=== PATIENT | female | born 2000 | race Caucasian/White ===

== ENCOUNTER 2025-05-09 14:23 | Inpatient (IN) | payer MEDICAID ==
[~2025-05-09] VITALS: Ht 165.1 cm; Wt 81.0 kg
--- NOTE | 2025-05-09 14:32 | Physician Documentation ---
History of Present Illness Stated Complaint: ABD PAIN Time Seen by MD: 14:31 HPI This is a 24-year-old female who was received as a transfer from [facility] due to acute cholecystitis. The patient reports that she developed epigastric pain this morning severe enough that she presented to the emergency department. An ultrasound done at [facility] and showed multiple stones in the gallbladder with severe wall thickening and positive Redmond sign as well as mild edema. Likely acute cholecystitis correlate with CT per radiologist. Her labs were remarkable for a white blood cell count of 12.3 but normal hemoglobin and hematocrit. Electrolytes showed mildly reduced potassium at 3.3 normal kidney function with EGFR 133, normal LFTs and lipase normal at 81. The patient received cefepime 1 g, Toradol 30 mg IV ondansetron 4 mg IV and a 1 L bolus of normal saline at [facility]. She has no medical history except for obesity and has had successful weight loss with Zepbound, which is her only medication. NEG test at [facility]. CT was not done. Review of Systems ROS As stated above in the HPI, otherwise all systems are reviewed and negative. Physical Exam Physical Exam General: Alert, no apparent distress. HEENT: PERRL, EOMI, no injection, moist mucous membranes. Neck: Full range of motion. Respiratory: Lungs clear, no respiratory distress. Chest: No accessory muscle use. Cardiovascular: Regular rate and rhythm, no murmurs. Gastrointestinal: Soft, TTP RUQ, nondistended. Bowels sounds present. Extremities: Normal range of motion, no deformity. Neurologic: Oriented x4. Psychiatric: Normal mood and affect. Skin: Normal color, warm and dry. No edema, no ecchymosis. Progress Progress Note 1515: Attempted to call Dr. Petersen, no answer. U.S. will attempt to get ahold of him. 1430: Spoke with Dr. Petersen via phone through OR nurse as he is scrubbed into a case. Requests CT scan, agrees to consult. Hospitalist paged. EKG/XRAY/CT/US/VASC/MRI CT : [address] [place] [address] CAT SCAN Patient: GEOVANNA HARRIS Medical Record: [id number] [facility] : 2000, Age: 24 Sex: Female Location: ER Patient Status: [facility] ER Service Date/Time: 05/09/251630 Ordering Physician: CHARLY ALVAREZ NP Exam: CT ABDOMEN PELVIS EXAM: CT CT ABDOMEN PELVIS W/ IV CONTRAST HISTORY: Acute cholecystitis on U.S. TECHNIQUE: Volumetric multidetector CT images of the abdomen and pelvis were obtained after the administration of intravenous contrast. All CT scans at this facility use dose modulation, iterative reconstruction, and/or weight based dosing when appropriate to reduce radiation dose to as low as reasonably achievable. COMPARISON: None FINDINGS: [LOWER CHEST]: 2-3 mm oval-shaped pulmonary nodule of the lower lobe, likely benign. [LIVER]: Small amount of fatty infiltration along the falciform ligament. [GALLBLADDER AND BILIARY TREE]: Large gallstone of the gallbladder. Intramural edema. No biliary dilation. [SPLEEN]: Unremarkable. [PANCREAS]: Unremarkable. [ADRENAL GLANDS]: Unremarkable [KIDNEYS]: No hydronephrosis. No nephroureterolithiasis. [BLADDER]: Unremarkable for the degree distention. [REPRODUCTIVE ORGANS]: Unremarkable. [BOWEL/MESENTERY]: Stomach is normal. No CT evidence of bowel obstruction. normal appendix. [ASCITES]: Absent [LYMPHADENOPATHY]: No pathologically enlarged lymph nodes by CT size criteria [VASCULATURE]: No aneurysmal dilatation. [ABDOMINAL WALL]: Unremarkable. [MUSCULOSKELETAL]: No acute fracture or aggressive focal osseous lesion. IMPRESSION: 1. Large gallstone of the gallbladder with intramural edema. 2. Correlate with clinical exam for acute cholecystitis. Electronically Signed by:TREVIN LANDRY MD Date & Time: 05/09/251715 Dictated by: TREVIN LANDRY MD Dictation date and time: 05/09/251715 Primary Care Provider: NO PRIMARY CARE PROVIDER cc: CHARLY ALVAREZ DAIRY NUTRITION CONSULTANT ~ Medical Decision Making Additional information obtaine: family Findings Extensively reviewed records from [facility]. Differential Dx:Considerations: Other Additional Comments Most Likely Diagnoses: Acute calculous cholecystitis: The combination of multiple gallstones, severe gallbladder wall thickening, mild edema, and a positive Redmond sign is highly suggestive of acute calculous cholecystitis. Mildly elevated WBC further supports an inflammatory process. This is the most common cause of acute cholecystitis in young adults and is typically due to cystic duct obstruction by gallstones.[1-2] Gallstone biliary colic: If pain is episodic and not persistent, biliary colic remains possible. However, the presence of wall thickening and edema favors cholecystitis over simple colic.[2-3] Chronic cholecystitis: Chronic inflammation from repeated gallstone attacks can cause gallbladder wall thickening, but acute symptoms and positive Redmond sign make this less likely in the current setting.[2] Acalculous cholecystitis: Less likely given the presence of multiple gallstones, but should be considered if clinical course is atypical or if the patient is critically ill.[1] Gallbladder empyema: Severe wall thickening and systemic symptoms could indicate progression to empyema, especially if infection is severe, but this usually presents with more pronounced systemic toxicity.[4] Most Important Not to Miss Diagnoses: Ascending cholangitis: Look for Charcots triad (fever, jaundice, RUQ pain) and evidence of biliary obstruction (elevated bilirubin, dilated ducts on imaging). Absence of jaundice and lack of biliary ductal dilation on ultrasound make this less likely, but it must be ruled out due to its high morbidity.[5] Gallbladder perforation with peritonitis: Suspect if there is sudden worsening of pain, peritoneal signs, or evidence of free fluid/air on imaging. CT is more sensitive than ultrasound for detecting perforation.[4] Gallstone pancreatitis: Check for epigastric pain radiating to the back and elevated serum amylase/lipase. Gallstones are a common cause in young women.[6] Departure Time of Disposition: 17:51 Disposition: ADMITTED INPATIENT Admitted to Inpatient Unit: yes, to hospitalist Impression: Primary Impression: Acute cholecystitis Referrals: NO PRIMARY CARE PROVIDER (PCP) Signature Scribe Signature: x Attestation: The note accurately reflects work and decisions made by me.Charly Win NP 05/09/25 15:09 CHARLY ALVAREZ NP May 09, 2025 14:32
[2025-05-09] MEDS: morphine 4 MG/ML inj SYRINge IV ONE (16:05)
[2025-05-09 16:25] LABS: MEAN PLATELET VOLUME 9.2 FL (7.4-10.4); RED CELL DISTRIBUTION WIDTH 13.1 % (11.5-14.5)
[2025-05-09] MEDS: ondansetron/PF 4mg/2ml inj IV ONE (16:27)
[2025-05-09] MEDS: diazepam inj 5 MG/ML inj. IV ONE (16:27)
[2025-05-09] MEDS: normal saline 1000ml 1,000 ML IV ONE (16:27)
[2025-05-09 16:39] LABS: CREATININE 0.48 MG/DL (0.40-0.90); TOTAL CARBON DIOXIDE 23.4 MMOL/L (24-32); eCRCL 165 ML/MIN; eGFR > 90 ML/MIN
[2025-05-09] MEDS ORDERED: iohexol 300mg/ml 100ml inj. ONE (16:46)
--- NOTE | 2025-05-09 17:19 | RADIOLOGY REPORT ---
EXAM: CT CT ABDOMEN PELVIS W/ IV CONTRAST HISTORY: Acute cholecystitis on U.S. TECHNIQUE: Volumetric multidetector CT images of the abdomen and pelvis were obtained after the administration of intravenous contrast. All CT scans at this facility use dose modulation, iterative reconstruction, and/or weight based dosing when appropriate to reduce radiation dose to as low as reasonably achievable. COMPARISON: None FINDINGS: [LOWER CHEST]: 2-3 mm oval-shaped pulmonary nodule of the lower lobe, likely benign. [LIVER]: Small amount of fatty infiltration along the falciform ligament. [GALLBLADDER AND BILIARY TREE]: Large gallstone of the gallbladder. Intramural edema. No biliary dilation. [SPLEEN]: Unremarkable. [PANCREAS]: Unremarkable. [ADRENAL GLANDS]: Unremarkable [KIDNEYS]: No hydronephrosis. No nephroureterolithiasis. [BLADDER]: Unremarkable for the degree distention. [REPRODUCTIVE ORGANS]: Unremarkable. [BOWEL/MESENTERY]: Stomach is normal. No CT evidence of bowel obstruction. normal appendix. [ASCITES]: Absent [LYMPHADENOPATHY]: No pathologically enlarged lymph nodes by CT size criteria [VASCULATURE]: No aneurysmal dilatation. [ABDOMINAL WALL]: Unremarkable. [MUSCULOSKELETAL]: No acute fracture or aggressive focal osseous lesion. IMPRESSION: 1. Large gallstone of the gallbladder with intramural edema. 2. Correlate with clinical exam for acute cholecystitis.
--- NOTE | 2025-05-09 17:59 | HISTORY AND PHYSICAL ---
History & Physical Providers to CC ~ History of Present Illness Reason for Admit\Complaint: Abdominal pain History of Present Illness 24 years old female who presents to the ER from [facility] as a transfer for evaluation and further treatment of abdominal pain. Patient states her being started this morning in his associated with nausea and vomiting. She had an ultrasound on it the [facility] which showed multiple gallstones, gallbladder wall thickening and a positive Redmond's signs in his cholecystitis. Patient has a a CT scan of the abdomen which confirmed the diagnosis. Dr. Johns has been contacted and patient has been admitted to the medicine service for further treatment She denies any recent fever chills dysuria frequency urgency hematuria melena or bright red blood per rectum. She denies any focal neurological symptoms or signs. Past Medical History Past Medical History None Past Surgical History Surgical History Comment None Family History Family History: Family history was reviewed; no changes noted. Past Social History Social History Comment Does not smoke drink or do any drugs Health Maintenance Health Maintenance Patient reports she current on her immunizations for her age ROS ROS All other systems are reviewed and are negative except as mentioned in HPI Exam Vitals: Vital Signs Date Time Temp Pulse Resp B/P (MAP) Pulse Ox O2 Delivery O2 Flow Rate FiO2 05/09/25 16:27 16 05/09/25 16:00 05/09/25 14:32 98.1 70 97 General: Awake alert cooperative in no distress. Her mother is at the bedside HEENT: Normocephalic, atraumatic, extraocular movements intact, scan extended, conjunctiva pinkish, moist mucosa. No rash or ulcers Neck: Supple, no JVD Chest: Clear to auscultation, no wheezes rhonchi Cardiovascular: Regular rate rhythm, no murmur, gallop or rub Abdomen: Soft, nontender, no organomegaly Extremities: No cyanosis clubbing or edema Central Nervous System: Nonfocal. Moves all four extremities Musculoskeletal: No joint swelling or deformities Skin: No rash or ulcers Diagnostic Data Last Recorded Lab Results: 05/09/25 1618 05/09/25 1618 Additional Plan 24 years old female presents to the ER for evaluation of abdominal pain 1. Acute cholecystitis: Patient has been NPO all day. We will keep her NPO, started on IV fluids,address pain control as necessary. Says she has been consulted. 2.Code status Patient will be kept as a full code. 3.DVT prophylaxis SCD and early ambulation Date of Service: May 09, 2025 Billing Provider: MARYA BRO MD Common Visit Codes: [id number] INP/OBS CARE (MOD) MARYA BRO MD May 09, 2025 17:59
[2025-05-09] MEDS ORDERED: magnesium sulf-water 4G/100mL 100 ML IV PRN (18:00)
[2025-05-09] MEDS ORDERED: potassium Cl 40MEQ/1/2NS 520ml 520 ML IV PRN (18:00)
[2025-05-09] MEDS ORDERED: magnesium Cl slow-release 64mg tablet PO PRN (18:00)
[2025-05-09] MEDS ORDERED: potassium Cl 20 mEq SR tablet PO PRN ×2 (18:00)
[2025-05-09] MEDS ORDERED: magnesium sulf-water 2g/50mL 50 ML IV PRN (18:00)
[2025-05-09] MEDS: normal saline 1000ml 1,000 ML IV SCH (18:31)
[2025-05-09] MEDS: K and/or MAG REPLACEMENT MC SCH (20:00)
[2025-05-09] MEDS ORDERED: NO HOME MEDS (22:05)
[2025-05-09 22:45] VITALS: BP 122/55; PULSE 86; RESP 16; TEMP 98.7; O2SAT 99
[2025-05-09 23:30] VITALS: RESP 18; O2SAT 98
[2025-05-10] VITALS (19 sets, daily range): BP systolic 122–150; BP diastolic 59–93; PULSE 82–104; RESP 14–24; TEMP 98.4–98.9; O2SAT 94–100
[2025-05-10 05:40] LABS: MEAN PLATELET VOLUME 9.5 FL (7.4-10.4); RED CELL DISTRIBUTION WIDTH 13.0 % (11.5-14.5)
[2025-05-10 05:47] LABS: CREATININE 0.36 MG/DL (0.40-0.90); TOTAL CARBON DIOXIDE 22.1 MMOL/L (24-32); eCRCL 221 ML/MIN; eGFR > 90 ML/MIN
[2025-05-10] MEDS: morphine 4 MG/ML inj SYRINge IV PRN ×2 (09:04→21:13)
[2025-05-10] MEDS: ondansetron/PF 4mg/2ml inj IV PRN (09:04)
[2025-05-10] MEDS ORDERED: dextrose 50%-water 50ml dispensing syringe IV PRN (09:20)
[2025-05-10] MEDS ORDERED: DEXTROSE 15 GM of carb/4 tabs (each vial/BOTTLE has 4 tablets) PO PRN ×2 (09:20)
[2025-05-10] MEDS ORDERED: glucagon, human recombinant 1mg kit SUBCUT PRN (09:20)
[2025-05-10] MEDS: dextrose 50%-water 50ml dispensing syringe IV PRN (09:32)
--- NOTE | 2025-05-10 15:41 | PROGRESS NOTE ---
Daily Progress Note Providers to CC ~ Antibiotic Timeout Antibiotic Ordered?: No Subjective No new complaints. Denies having any abdominal pain. Objective Vital Signs Date Time Temp Pulse Resp B/P (MAP) Pulse Ox O2 Delivery O2 Flow Rate FiO2 05/10/25 09:04 18 05/10/25 08:00 Room Air 0.0 05/09/25 23:30 98 05/09/25 22:45 98.7 86 122/55 (77) Result Diagram: 05/10/2544705/10/25447 Gen. awake alert oriented asymptomatic HEENT: Normocephalic, atraumatic, extraocular movements are intact, sclera anicteric, conjunctiva pinkish, moist oral mucosa, no rash or ulcers. NECK: Supple, no JVD, trachea midline. CHEST: Clear to auscultation, no wheezes crackles or rhonchi. HEART: Regular rate rhythm, no murmur gallop or rub. ABDOMEN: Soft, nontender, no organomegaly. EXTREMITIES: No cyanosis clubbing or edema. NEURO EXAM: Grossly nonfocal. MUSCULOSKELETAL : No joint swelling or deformities. SKIN: No rash or ulcers noted. Other Results Medications reviewed Problem\Assessment\Plan 24 years old female presents to the ER for evaluation of abdominal pain 1. Acute cholecystitis: NPO, IVF and pain control as necessary. Dr. Johns has been consulted. 2.Code status Full code. 3.DVT prophylaxis SCD and early ambulation Date of Service: May 10, 2025 Billing Provider: MARYA BRO MD Common Visit Codes: [id number] INP/OBS CARE(LOW) MARYA BRO MD May 10, 2025 15:41
[2025-05-10] MEDS ORDERED: BUPIVAcaine 2.5mg/ml inj 50ml vial (contains preservative) ONE (18:38)
--- NOTE | 2025-05-10 18:45 | PROGRESS NOTE ---
Progress Note ID Providers to CC ~ Progress Note Progress Note: pt seen and examined-needs miguel chase-possible open-discussed procedure including risks/benefits/alternatives DAVID ALVARENGA MD May 10, 2025 18:45
--- NOTE | 2025-05-10 19:09 | RADIOLOGY REPORT ---
EXAM: DI CHEST,SINGLE VIEW CLINICAL HISTORY: pre op TECHNIQUE: Single AP view of the chest WID: COMPARISON: None FINDINGS: Lines and tubes: None Chest: The heart size and pulmonary vasculature is within normal limits. No pleural effusion, pneumothorax, or consolidation. The osseous structures are grossly intact. IMPRESSION: 1. No acute cardiopulmonary abnormality.
[2025-05-10 19:21] LABS: INR 1.1 INR; PRE OP PARTIAL THROMB. TIME 30 SECONDS (22-32)
[2025-05-10] MEDS ORDERED: morphine 4 MG/ML inj SYRINge IV PRN (19:25)
[2025-05-10] MEDS ORDERED: acetaminophen 1,000mg/100ml IV 100 ML IV PRN (19:25)
[2025-05-10] MEDS ORDERED: hydrALAZINE 20mg/ml inj. IV PRN (19:25)
[2025-05-10] MEDS: ringers solution, lacted 1,000 ML IV SCH (19:25)
[2025-05-10] MEDS ORDERED: labetalol 20mg/4ml (5mg/ml) syringe IV PRN (19:25)
[2025-05-10] MEDS ORDERED: HYDROmorphone/PF 0.2 MG/ML SYRINGE IV PRN (19:25)
[2025-05-10] MEDS ORDERED: ondansetron/PF 4mg/2ml inj IV PRN ×2 (19:25→21:00)
[2025-05-10] MEDS ORDERED: fentaNYL/PF 50MCG/1 ML 2ML syringe ONE (19:40)
[2025-05-10] MEDS ORDERED: midazolam 1 mg/ML 2ml injection ONE (19:41)
[2025-05-10] MEDS ORDERED: rocuronium 10mg/ml inj IV ONE (19:41)
[2025-05-10] MEDS ORDERED: propofol inj 20 ML IV ONE (19:41)
[2025-05-10] MEDS: BUPIVAcaine/PF 2.5 mg/ml (0.25%) 30ml vial IJ ONE (20:06)
[2025-05-10] MEDS ORDERED: ondansetron/PF 4mg/2ml inj ONE (20:43)
[2025-05-10] MEDS ORDERED: dexamethasone sod phosphate 4mg/ml inj. ONE (20:43)
--- NOTE | 2025-05-10 20:56 | OPERATIVE REPORT ---
Operative Report Providers to CC ~ Date of Procedure: May 10, 2025 Pre-Operative Diagnosis: cholelithiasis/cholecystitis Post-Operative Diagnosis SAME as PRE-Op Procedure Performed miguel chase Surgeon: sammy Grout Worker none Anesthesiologist: Ashvin Gómez Type of Anesthesia: General Findings: distended gb Estimated Blood Loss: 50 ml Specimen Removed: DAVID Mascorro MD May 10, 2025 20:56
[2025-05-10] MEDS: HYDROmorphone/PF 0.2 MG/ML SYRINGE IV PRN (22:25)
[2025-05-11] VITALS (9 sets, daily range): BP systolic 125–138; BP diastolic 78–90; PULSE 78–99; RESP 16–18; TEMP 98.4–98.9; O2SAT 96–97
[2025-05-11] MEDS: HYDROcodone/acetaminophen 5mg/325mg tablet PO PRN (01:06)
[2025-05-11] MEDS ORDERED: ceFOXitin 2GM-NS 100mL ADDvant 100 ML IV SCH (02:00)
[2025-05-11] MEDS ORDERED: ceFOXitin sod/dextrose 2g/50ml 100 ML IV SCH (02:40)
[2025-05-11] MEDS ORDERED: ceFOXitin sod/dextrose 2g/50ml 100 ML IV ONE (02:40)
[2025-05-11] MEDS: ceFOXitin sod/dextrose 2g/50ml 50 ML IV ONE (03:02)
[2025-05-11 06:37] LABS: MEAN PLATELET VOLUME 9.6 FL (7.4-10.4); RED CELL DISTRIBUTION WIDTH 13.1 % (11.5-14.5)
[2025-05-11 06:40] LABS: CREATININE 0.44 MG/DL (0.40-0.90); TOTAL CARBON DIOXIDE 23.1 MMOL/L (24-32); eCRCL 180 ML/MIN; eGFR > 90 ML/MIN
[2025-05-11] MEDS: ceFOXitin 2GM-NS 100mL ADDvant 100 ML IV SCH (07:50)
--- NOTE | 2025-05-11 12:44 | PROGRESS NOTE ---
Progress Note ID Providers to CC ~ Progress Note Progress Note: doing well/advance diet DAVID ALVARENGA MD May 11, 2025 12:44
[2025-05-11] MEDS ORDERED: HYDR-3965 PO (13:58)
--- NOTE | 2025-05-11 19:47 | DISCHARGE SUMMARY ---
Discharge Summary Providers to CC Feels better today cleared for discharge by surgeon ~ Discharge Summary Assessment Acute abdominal pain Acute cholecystitis Status post cholecystectomy Admission Diagnosis: cholelithiasis/cholecystitis Admission Diagnosis Comment: Acute abdominal pain Acute cholecystitis Status post cholecystectomy Hospital Course DATE OF ADMISSION: May 09, 2025 DATE OF DISCHARGE: May 11, 2025 Discharge Diagnosis\Comment: Acute abdominal pain Acute cholecystitis Status post cholecystectomy Operations\Procedures: Cholecystectomy Consultants: Surgeon Complications: None Condition on DC: Stable for transfer Discharge Summary: 24 years old female who presents to the ER from [facility] as a transfer for evaluation and further treatment of abdominal pain. Patient states her being started this morning in his associated with nausea and vomiting. She had an ultrasound on it the [facility] which showed multiple gallstones, gallbladder wall thickening and a positive Redmond's signs in his cholecystitis. Patient has a a CT scan of the abdomen which confirmed the diagnosis. Dr. Johns has been contacted and patient has been admitted to the medicine service for further treatment She denies any recent fever chills dysuria frequency urgency hematuria melena or bright red blood per rectum. She denies any focal neurological symptoms or signs. Admission patient was extensively evaluated cholecystectomy done, post operative patient feels fine cleared for discharge by surgeon, medication reconciled, follow-up PCP and surgeon in three days, today on physical exam Vital signs, stable ,afebrile. Pulse Oximetry reflects demetrio quate oxygenation. General: well developed, well nourished. Awake , alert, and oriented x4, resting comfortably in the bed, in no acute distress . Skin: Warm, dry, no pallor, no rash or petechiae. HEENT: Atraumatic, normocephalic, EOMI, anicteric sclera B; pink conjunctiva; PERRLA, normal oropharynx, moist oral and nasal mucosa. Tympanic membrane , nose , throat clear. Neck: Trachea midline. Supple, full range of motion, no JVD, bruit , hepatojugular reflex , lymphadenopathy or masses, or other lesions Cardiac: Regular rhythm, regular rate no murmurs, rubs, or gallops. Normal S1 and S2, no S3 noticed. PMI is normal. Respiratory: Equal breath sounds bilaterally, no tachypnea; lungs clear to auscultation bilaterally, no wheezing ,rub or rales, or crackles. Chest wall is symmetric and without deformity. No signs of trauma. Chest wall is nontender. No signs of respiratory distress. Resonance is normal upon percussion bilaterally. Gastrointestinal: Dressing clean dry intact, Abdomen symmetric, non-distended, soft, non-tender, normal bowel sounds x4 quadrant, normoactive, no hepatosplenomegaly , no masses , no bruit, no flank pain bilaterally. No voluntary guarding, rebound, or rigidity. No tenderness to percussion. No pulsatile masses. Equal femoral pulses. No Redmond's sign or McBurney point tenderness. Back; no CVA tenderness bilaterally, no deformities. Neck and back are without deformity as well. No tenderness noted on palpation of the spinous processes. Spinous processes are midline. Cervical, thoracic, and lumbar paraspinal muscles are not tender and are without spasm. Musculoskeletal: Extremities, normal range of motion, non-tender, muscle strength 5/5 x 4. Negative Homans signs bilaterally on lower extremity. Distal pulses full symmetrical, no clubbing, cyanosis , edema. Neurological: Speech is clear, alert, and oriented x 4. No motor or sensory deficit, deep tendon reflexes normal, cerebellar intact. Cranial nerves II-XII intact. Psych: Alert and or appropriate, normal affect. Vascular: Good distal pulses, which are equal x4; capillary refill less than 2 seconds. Lymphatic, no lymphadenopathy. *Problems/Diagnosis: (1) Acute cholecystitis Status: Acute Total Time Spent on D/C: > 30 Minutes Date of Service: May 11, 2025 Billing Provider: PREM ISABEL MD Common Visit Codes: [id number] DISCH DAY >30min PREM ISABEL MD May 11, 2025 19:47
--- NOTE | 2025-05-13 23:16 | CONSULTATION ---
DATE OF CONSULTATION: 05/10/2025 DICTATING PHYSICIAN: Phani Johns MD REASON FOR CONSULTATION: Evaluation for abdominal pain. HISTORY OF PRESENT ILLNESS: The patient is a 24-year-old female who was transferred from [facility] with complaints of abdominal pain, found to have cholelithiasis, possible cholecystitis. Surgical evaluation was requested. On further questioning, the patient states the pain has improved. Pain was involved in the right upper quadrant. History of peptic ulcer disease. PAST MEDICAL HISTORY: Unremarkable. PAST SURGICAL HISTORY: Unremarkable. HOME MEDICATIONS: . SOCIAL HISTORY: No tobacco or alcohol use. REVIEW OF SYSTEMS: Please see H and P. PHYSICAL EXAMINATION: GENERAL: A well-developed, well-nourished female, in no distress. VITAL SIGNS: Unremarkable. HEART: Regular rate and rhythm. LUNGS: Clear to auscultation. ABDOMEN: Minimal tenderness at the present time. EXTREMITIES: Unremarkable. NEUROLOGIC: Nonfocal. LABORATORY DATA: Labs include WBC 6.8, hematocrit of 35, platelet count 224. Chemistries notable for normal LFTs. IMAGING STUDIES: CT of the abdomen and pelvis reveals cholelithiasis with cholecystitis. IMPRESSION: Cholelithiasis and cholecystitis. PLAN: * Admit. * Hydrate. * IV antibiotics. * Robotic cholecystectomy. Phani Johns MD TID: [id number] RECEIPT: [id number] KB/PRG cc: Phani Johns MD(User)
--- NOTE | 2025-05-13 23:25 | OPERATIVE REPORT ---
DATE OF SURGERY: 05/10/2025 DICTATING PHYSICIAN: Phani Johns MD PREOPERATIVE DIAGNOSIS: Cholecystitis. POSTOPERATIVE DIAGNOSIS: Cholecystitis. PROCEDURE PERFORMED: Robotic salvatore. SURGEON: Phani Johns MD PRINTED PRODUCTS ASSEMBLER: None. ANESTHESIA: General/Dr. Gómez. DRAINS: None. INDICATIONS FOR OPERATION: A 24-year-old female with cholecystitis, taken to surgery for robotic salvatore. INTRAOPERATIVE FINDINGS: Distended gallbladder. DESCRIPTION OF PROCEDURE: The patient was placed supine on the operating table. After induction of general anesthesia and placement of endotracheal tube, the abdomen was prepped and draped. A subumbilical incision was then made and Ana port placed using open technique and pneumoperitoneum was begun by insufflation of CO2. Additional ports were then placed in the left lower quadrant and then the right. Robot was then brought to the field. Camera port docked, camera placed, camera targeted. Additional ports were then docked and instruments placed. Abdomen was explored. Gallbladder fundus was grasped and retracted cephalad. Cystic duct identified, isolated, ligated, clipped and divided the cystic artery. The gallbladder was mobilized off the gallbladder fossa. Hemostasis was found to be adequate. Robotic instruments were removed from the field. Gallbladder was placed in Endobag using laparoscope. Abdomen was copiously irrigated with large amount of antibiotic-containing solution. Ports were removed under laparoscopic visualization with no evidence of active bleeding. Final port and camera were withdrawn. . Wounds were closed in layers. Skin was closed with subcuticular stitch. Dressing was applied. The patient was transferred to recovery room in stable condition. Phani Johns MD TID: [id number] RECEIPT: [id number] KB/JEFFREY
--- NOTE | 2025-05-14 11:29 | PATHOLOGY REPORT ---
[facility] [address] [place] [address] SURGICAL PATHOLOGY REPORT CaseNumber: [id number] Surgeon:Phani Johns M.D. CLINICAL INFORMATION CLINICAL INFORMATION: Cholecystitis DIAGNOSIS DIAGNOSIS: GALBLADDER; CHOLECYSTECTOMY - CHOLELITHIASIS. - ACUTE AND CHRONIC CHOLECYSTITIS. MICROSCOPIC DESCRIPTION MICROSCOPIC DESCRIPTION: Performed. GROSS DESCRIPTION GROSS DESCRIPTION: Received in a container of formalin labeled with the patient's name, number, and "Gallbladder" is an intact gallbladder which measures 7.5 cm long by 3 cm in diameter. The serosa is smooth, shiny, and blancas- green. The surgical bed is unremarkable. Sectioning reveals a moderate amount of viscous dark green bile and a 1.5 cm aggregate of yellow-green stones which measure up to 1.2 cm. The mucosa is intact and without focal lesion. The wall of the gallbladder measures up to 0.6 cm thick. Aboriginal Liaison Officer sections of the neck and wall of the gallbladder are submitted as A1.The time at which the specimen was removed was 2038. The time at which the specimen was placed in formalin was 2051. Electronically signed by: Zoltan Woo, 05/14/2025 10:54:00 AM
== END 2025-05-11 15:48 | disposition home or self-care (01) | DRG 263 ==
LOC: ER 14:25 → ED HOLD 18:02 → SUR 3N 22:40
PROVIDERS: ADMIT Internal Medicine; ATTEND Internal Medicine
PROC: BW211ZZ Computerized Tomography (CT Scan) of Abdomen and Pelvis using Low Osmolar Contrast (ICD-10-PCS; 2025-05-09)
PROC: 8E0W4CZ Robotic Assisted Procedure of Trunk Region, Percutaneous Endoscopic Approach (ICD-10-PCS; 2025-05-10)
PROC: 0FT44ZZ Resection of Gallbladder, Percutaneous Endoscopic Approach (ICD-10-PCS; principal; 2025-05-10 19:42)
DX: K80.00 Calculus of gallbladder with acute cholecystitis without obstruction (principal); Z87.11 Personal history of peptic ulcer disease
CPT/HCPCS: 36415; 71045; 74177; 80048; 80053; 82948; 83735; 85025; 85610; 85730; 86885; 86900; 86901; 87081; 96361; 96374; 96375; 99285; A4215; A4615; A4618; A7000; G0378; J0690; J0694; J1100; J1171; J2250; J2270; J2405; J2704; J3010; J3360; J3490; J7030; J7042; J7120; Q9967